=== PATIENT | male | born 1990 | race African-American/Black ===

== ENCOUNTER 2023-12-31 08:24 | Outpatient (CLI) | payer OTHER | END 2023-12-31 08:25 | disposition home or self-care (01) | LOC: CSHSLEEP 08:24 | PROVIDERS: ATTEND Registered Nurse | DX: G47.33 Obstructive sleep apnea (adult) (pediatric) (principal); R53.83 Other fatigue; R51.9 Headache, unspecified; F32.A Depression, unspecified; F41.9 Anxiety disorder, unspecified; E66.9 Obesity, unspecified; Z68.28 Body mass index [BMI] 28.0-28.9, adult; R06.83 Snoring; G47.10 Hypersomnia, unspecified | CPT/HCPCS: 95800 ==

== ENCOUNTER 2024-02-25 19:00 | Outpatient (CLI) | payer OTHER | END 2024-02-25 19:01 | disposition home or self-care (01) | LOC: CSHSLEEP 19:00 | PROVIDERS: ATTEND Registered Nurse | DX: G47.33 Obstructive sleep apnea (adult) (pediatric) (principal); R53.83 Other fatigue; R51.9 Headache, unspecified; F32.A Depression, unspecified; F41.9 Anxiety disorder, unspecified; E66.9 Obesity, unspecified; Z68.28 Body mass index [BMI] 28.0-28.9, adult; R06.83 Snoring | CPT/HCPCS: 95810 ==